=== PATIENT | male | born 1995 | race African-American/Black ===

== ENCOUNTER 2021-09-14 16:56 | Emergency (ER) | payer BC, OTHER ==
[2021-09-14 17:21] VITALS: BP 138/73; PULSE 67; TEMP 98.1; BMI 27.8
== END 2021-09-14 21:00 | disposition home or self-care (01) ==
LOC: JERFT 16:56
DX: S46.912A Strain of unspecified muscle, fascia and tendon at shoulder and upper arm level, left arm, initial encounter (principal)
CPT/HCPCS: 73030-TC-LT-FY; 99283-25

== ENCOUNTER 2022-04-27 12:11 | Emergency (ER) | payer OTHER ==
[2022-04-27 12:16] VITALS: BP 133/85; PULSE 68; TEMP 98.6; BMI 29.9
== END 2022-04-27 12:55 | disposition home or self-care (01) ==
LOC: JERFT 12:11
DX: H00.014 Hordeolum externum left upper eyelid (principal); S46.911A Strain of unspecified muscle, fascia and tendon at shoulder and upper arm level, right arm, initial encounter; X50.0XXA Overexertion from strenuous movement or load, initial encounter
CPT/HCPCS: 99283-25

== ENCOUNTER 2022-10-14 14:04 | Emergency (ER) | payer OTHER ==
[2022-10-14 14:41] VITALS: BP 142/89; PULSE 78; RESP 18; TEMP 98.1; BMI 30.4
== END 2022-10-14 17:15 | disposition home or self-care (01) ==
LOC: JER 14:04
DX: R05.1 Acute cough (principal); R07.9 Chest pain, unspecified
CPT/HCPCS: 71046-TC-FY; 93005; 93010; 99284-25